=== PATIENT | female | born 1945 | race Caucasian/White ===

== ENCOUNTER 2024-07-22 08:00 | Day surgery (SDC) | payer MEDICARE ==
[2024-07-22] MEDS ORDERED: dexAMETHasone sodium phosphate IJ ONE (08:01)
[2024-07-22] MEDS ORDERED: Sodium Chloride 0.9(Preservative Free) 10 ML IJ ONE (08:01)
[2024-07-22] MEDS ORDERED: propofoL IV ONE (08:54)
--- NOTE | 2024-07-22 09:42 | XRAY ---
35 seconds of fluoroscopy was used in surgery for a left L4-S1 transforaminal LEAH.
--- NOTE | 2024-07-22 09:42 | XRAY ---
Indication: Left L4-S1 transforaminal LEAH. Intraoperative fluoroscopy provided for 35 seconds. 4 digital spot image submitted for interpretation demonstrates posterior needle tips projecting over expected left L4 and L5 nerve roots. Small amount of contrast injected for needle tip placement. Correlate with intraoperative findings/report.
== END 2024-07-22 09:32 | disposition home or self-care (01) ==
LOC: SDC-PAIN 08:00
PROVIDERS: ATTEND Psychiatry & Neurology Pain Medicine
DX: M54.16 Radiculopathy, lumbar region (principal); E11.9 Type 2 diabetes mellitus without complications
CPT/HCPCS: 64483; 64484; 72100; 77003; 82947; J1100; J2704; Q9966

== ENCOUNTER 2024-09-02 09:36 | Day surgery (SDC) | payer MEDICARE ==
[2024-09-02] MEDS ORDERED: LIDOCAINE HCL 2% 100 MG/5 ML IJ ONE (09:37)
[2024-09-02] MEDS ORDERED: Depo-Medrol 40 MG/ML IM ONE (09:37)
[2024-09-02] MEDS ORDERED: propofoL IV ONE (11:10)
--- NOTE | 2024-09-02 12:19 | XRAY ---
Indication: Bilateral L4-S1 MBB. Intraoperative fluoroscopy provided for 10 seconds. Single digital spot image submitted for interpretation demonstrates posterior needle tips projecting over expected left and right L4-S1 nerve roots.. Correlate with intraoperative findings/report.
--- NOTE | 2024-09-02 12:27 | XRAY ---
10 seconds of fluoroscopy was used in surgery for a bilateral L4-S1 MBB.
== END 2024-09-02 11:41 | disposition home or self-care (01) ==
LOC: SDC-PAIN 09:36
PROVIDERS: ATTEND Psychiatry & Neurology Pain Medicine
DX: M47.816 Spondylosis without myelopathy or radiculopathy, lumbar region (principal); E11.9 Type 2 diabetes mellitus without complications
CPT/HCPCS: 64493; 64494; 72020; 77002; 82947; J2704

== ENCOUNTER 2024-10-07 08:42 | Day surgery (SDC) | payer MEDICARE ==
[2024-10-07] MEDS ORDERED: BUPIVACAINE 0.5% VIAL IJ ONE (08:43)
[2024-10-07] MEDS ORDERED: Depo-Medrol 40 MG/ML IM ONE (08:43)
[2024-10-07] MEDS ORDERED: propofoL IV ONE (10:00)
--- NOTE | 2024-10-07 11:57 | XRAY ---
Indication: Bilateral L4-S1 MBB. Intraoperative fluoroscopy provided for 8 seconds. Single digital spot image submitted for interpretation demonstrates posterior needle tips projecting over expected left and right L4-S1 nerve roots. Correlate with intraoperative findings/report.
--- NOTE | 2024-10-07 12:58 | XRAY ---
8 seconds of fluoroscopy was used in surgery for a bilateral L4-S1 MBB.
== END 2024-10-07 10:27 | disposition home or self-care (01) ==
LOC: SDC-PAIN 08:42
PROVIDERS: ATTEND Psychiatry & Neurology Pain Medicine
DX: M47.816 Spondylosis without myelopathy or radiculopathy, lumbar region (principal); E11.9 Type 2 diabetes mellitus without complications
CPT/HCPCS: 64493; 64494; 72020; 82947; J2704

== ENCOUNTER 2024-11-04 08:07 | Day surgery (SDC) | payer MEDICARE ==
[2024-11-04] MEDS ORDERED: Depo-Medrol 40 MG/ML IM ONE (08:08)
[2024-11-04] MEDS ORDERED: LIDOCAINE HCL 1% AMPUL 5 ML IJ ONE (08:08)
[2024-11-04] MEDS ORDERED: BUPIVACAINE 0.5% VIAL IJ ONE (08:08)
[2024-11-04] MEDS ORDERED: propofoL IV ONE (10:07)
[2024-11-04] MEDS ORDERED: Lactated Ringers 1,000 ML IV ONE (10:53)
--- NOTE | 2024-11-04 12:35 | XRAY ---
Indication: Right L4-S1 RFA. Intraoperative fluoroscopy provided for 14 seconds. 3 digital spot images submitted for interpretation demonstrates posterior needle tips projecting over expected right L4-S1 nerve roots. Correlate with intraoperative findings/report.
--- NOTE | 2024-11-04 13:07 | XRAY ---
14 seconds of fluoroscopy was used in surgery for a right L4-S1 RFA.
== END 2024-11-04 10:35 | disposition home or self-care (01) ==
LOC: SDC-PAIN 08:07
PROVIDERS: ATTEND Psychiatry & Neurology Pain Medicine
DX: M47.817 Spondylosis without myelopathy or radiculopathy, lumbosacral region (principal); E11.9 Type 2 diabetes mellitus without complications
CPT/HCPCS: 64635; 64636; 72100; 82947; 99100; J2704